=== PATIENT | female | born 1940 | race Caucasian/White ===

== ENCOUNTER 2016-11-12 16:26 | Inpatient (IN) | payer MEDICARE, OTHER ==
[~2016-11-12] VITALS: Ht 50.2 cm; Wt 80.3 kg
[~2016-11-12 16:26] MED LIST: ASPI-COR81 M1 PO; BUMEX2 MG PO; COREG3.125 MG PO; COUMADIN5 M2 PO; FOLIC ACID1 MG PO; MAG-OX 400400 MG PO; MASON NATURAL2000 IU PO; MIACALCIN SPRAY1 EA NAS; MOBIC7.5 MG PO; OXY IR5 MG PO; POTASSIUM20 MEQ PO; SYNTHROID0.1 MG PO
[2016-11-12 16:31] VITALS: BP 111/55
[2016-11-12 17:04] LABS: BASO % 0.4 % (0.0-1.0); EOS # 0.1 10*3/uL (0.0-0.4); EOS % 1.1 % (1.0-4.0); HEMOGLOBIN 11.9 g/dl (12.0-16.0); LYMPH # 1.1 10*3/uL (1.3-4.4); LYMPH % 14.3 % (27.0-41.0); MEAN CELL VOLUME 85.2 fl (81.0-99.0); MEAN CORPUSCULAR HGB CONC 30.5 g/dl (33.0-37.0); MONO # 0.7 10*3/uL (0.1-1.0); MONO % 9.4 % (3.0-9.0); NEUT # 5.6 10*3/uL (2.3-7.9); NEUT % 74.5 % (47.0-73.0); PLATELET COUNT AUTOMATED 163 10*3/uL (130-400); RED BLOOD COUNT 4.58 10*6/uL (4.10-5.10); RED CELL DISTRI WIDTH 18.5 % (0-14.5); WHITE BLOOD COUNT 7.6 10*3/uL (4.8-10.8)
[2016-11-12 17:12] LABS: INTERNATIONAL NORM RATIO 2.8 (2.0-3.5)
[2016-11-12 17:20] LABS: ALBUMIN 2.9 gm/dl (3.1-4.5); CREATININE 1.64 mg/dL (0.55-1.02); MAGNESIUM 1.9 mg/dL (1.5-2.1); POTASSIUM 3.6 mmol/L (3.5-5.1); TOTAL PROTEIN 7.5 gm/dL (6.4-8.2)
[2016-11-12 17:21] LABS: TROPONIN I 0.019 ng/ml (<0.045)
[2016-11-12 17:36] LABS: BILIRUBIN NEGATIVE (NEGATIVE); BLOOD NEGATIVE (NEGATIVE); CLARITY CLEAR (CLEAR); COLOR YELLOW (YELLOW); GLUCOSE NEGATIVE (NEGATIVE); KETONE NEGATIVE (NEGATIVE); LEUKO ESTERASE NEGATIVE (NEGATIVE); NITRITE NEGATIVE (NEGATIVE); SPECIFIC GRAVITY <= 1.005 (1.005-1.030); UROBILINOGEN 0.2 E.U./dl (0.2-1.0)
[2016-11-12 17:46] LABS: BACTERIA TRACE; EPITHELIAL CELLS 0-2; HYALINE CAST 21-30; RBC 0-2 rbc/hpf (0-2)
[2016-11-12 19:00] VITALS: BP 122/50
[2016-11-12 20:00] VITALS: BP 122/50
[2016-11-12] MEDS ORDERED: ZOLOFT50 MG PO (22:32)
[2016-11-12] MEDS ORDERED: CALCIUM + D SO1 EACH PO (22:34)
[2016-11-13] VITALS: BP 132/77
[2016-11-13 07:19] LABS: BASO % 0.3 % (0.0-1.0); EOS # 0.1 10*3/uL (0.0-0.4); EOS % 1.6 % (1.0-4.0); LYMPH # 1.4 10*3/uL (1.3-4.4); LYMPH % 16.1 % (27.0-41.0); MEAN CELL VOLUME 84.3 fl (81.0-99.0); MEAN CORPUSCULAR HGB 26.6 pg (27.0-31.0); MEAN CORPUSCULAR HGB CONC 31.6 g/dl (33.0-37.0); MEAN PLATELET VOLUME 11.7 fl (9.6-12.3); MONO # 0.7 10*3/uL (0.1-1.0); MONO % 7.8 % (3.0-9.0); NEUT # 6.4 10*3/uL (2.3-7.9); NEUT % 73.7 % (47.0-73.0); PLATELET COUNT AUTOMATED 181 10*3/uL (130-400); RED BLOOD COUNT 4.51 10*6/uL (4.10-5.10); RED CELL DISTRI WIDTH 18.5 % (0-14.5); WHITE BLOOD COUNT 8.7 10*3/uL (4.8-10.8)
[2016-11-13 07:45] LABS: CREATININE 1.44 mg/dL (0.55-1.02); MAGNESIUM 1.9 mg/dL (1.5-2.1); PHOSPHOROUS 3.3 mg/dL (2.5-4.9); POTASSIUM 3.3 mmol/L (3.5-5.1)
[2016-11-13 07:49] LABS: ACT PARTIAL THROMBO TIME 39.5 SECONDS (20.8-31.5)
[2016-11-13 07:52] LABS: THYROID STIM HORMONE (HS) 6.15 uIU/ml (0.358-4.75)
[2016-11-13 08:00] VITALS: BP 153/89
[2016-11-13 08:40] LABS: VITAMIN D, 25-HYDROXY 34.4 ng/mL (30-100)
[2016-11-13 12:00] VITALS: BP 108/76
[2016-11-13 16:00] VITALS: BP 129/67
[2016-11-13 20:00] VITALS: BP 125/61
[2016-11-14] VITALS: BP 126/90
[2016-11-14 04:00] VITALS: BP 110/62
[2016-11-14 07:26] LABS: CREATININE 1.21 mg/dL (0.55-1.02); FREE T4 1.11 ng/dl (0.76-1.46); PHOSPHOROUS 2.7 mg/dL (2.5-4.9); POTASSIUM 3.5 mmol/L (3.5-5.1)
[2016-11-14 08:02] VITALS: BP 141/91
[2016-11-14 12:00] VITALS: BP 115/74
[2016-11-14 16:00] VITALS: BP 114/49
[2016-11-14 20:00] VITALS: BP 114/74
[2016-11-15] VITALS: BP 110/56
[2016-11-15 06:24] LABS: INTERNATIONAL NORM RATIO 1.9 (2.0-3.5)
[2016-11-15 08:00] VITALS: BP 110/60
[2016-11-15 12:00] VITALS: BP 95/67
== END 2016-11-15 12:50 | disposition other institution (70) | DRG 291 ==
LOC: ED 16:26 → 4E 17:46 → EDHOLD 17:46 → 4E 18:17
PROVIDERS: Internal Medicine; Physician Assistant; Student in an Organized Health Care Education/Training Program; ADMIT Emergency Medicine
DX: I13.0 Hypertensive heart and chronic kidney disease with heart failure and stage 1 through stage 4 chronic kidney disease, or unspecified chronic kidney disease (principal); I50.33 Acute on chronic diastolic (congestive) heart failure; N17.0 Acute kidney failure with tubular necrosis; E44.0 Moderate protein-calorie malnutrition; I27.2 Other secondary pulmonary hypertension; R00.1 Bradycardia, unspecified; B35.1 Tinea unguium; I48.2 Chronic atrial fibrillation; E03.9 Hypothyroidism, unspecified; E87.6 Hypokalemia; I87.2 Venous insufficiency (chronic) (peripheral); G89.29 Other chronic pain; R31.9 Hematuria, unspecified; N18.3 Chronic kidney disease, stage 3 (moderate); H91.92 Unspecified hearing loss, left ear; D64.9 Anemia, unspecified; R41.0 Disorientation, unspecified; Z95.2 Presence of prosthetic heart valve; Z68.28 Body mass index [BMI] 28.0-28.9, adult; Z90.12 Acquired absence of left breast and nipple; Z85.3 Personal history of malignant neoplasm of breast; Z79.01 Long term (current) use of anticoagulants; Z79.82 Long term (current) use of aspirin; Z79.899 Other long term (current) drug therapy; Z82.49 Family history of ischemic heart disease and other diseases of the circulatory system; Z83.3 Family history of diabetes mellitus; Z80.0 Family history of malignant neoplasm of digestive organs

== ENCOUNTER 2016-12-17 11:50 | Inpatient (IN) | payer MEDICARE, OTHER ==
[~2016-12-17] VITALS: Ht 167.6 cm; Wt 100.2 kg
[2016-12-17] VITALS (7 sets, daily range): BP systolic 125–145; BP diastolic 71–93
--- NOTE | ~2016-12-17 | PR ---
[place], [place] PROGRESS NOTE NAME: PARVEEN RAINES UNIT #: [id number] ROOM: 410 DOCTOR: CITLALI VOSS MD BIRTHDATE: [birth year] DOS: 12/22/2016 SUBJECTIVE: The patient was seen at her bedside today with a family member in attendance. She seems somewhat more breathless. She denies any chest pain or palpitations. PHYSICAL EXAMINATION: VITAL SIGNS: Today, her pulse is 100 and irregularly irregular, blood pressure is 116/79. She has a temperature of 99.2. NECK: Supple. She has no jugular distention. She does have hepatojugular reflux. Carotids are full. LUNGS: Respirations have decreased breath sounds with crackles at the bases. She has no presacral edema. HEART: Has an irregularly irregular rhythm. The PMI is not displaced. She has no murmurs or gallops. ABDOMEN: Obese. EXTREMITIES: Showed trace edema bilaterally. IMPRESSION: 1. Acute on chronic diastolic congestive heart failure. 2. Atrial fibrillation. 3. Status post mitral valve replacement. 4. Chronic renal insufficiency, exacerbated by diuresis. PLAN: The patient's left ventricular systolic function is normal, but she remains in atrial fibrillation with an occasional rapid ventricular response, which contributes to her diastolic dysfunction. I will increase her metoprolol once again and had in a low dose of hydralazine and nitrates to act as unloading therapies. I am reluctant to increase her diuretics because of her worsening prerenal azotemia. Hopefully if we can get her heart rate down, she will begin to diurese more aggressively without an increase in her diuretics. I thank the hospitalist physicians for asking our advice regarding her care. [place], [place] PROGRESS NOTE NAME: PARVEEN RAINES UNIT #: [id number] ROOM: 410 DOCTOR: CITLALI VOSS MD BIRTHDATE: [birth year] CITLALI VOSS MD CM:PNTRANS [phone] CITLALI VOSS MD 12/23/16134 interface
--- NOTE | ~2016-12-17 | PR ---
[place], [place] PROGRESS NOTE NAME: PARVEEN RAINES [facility] #: [id number] UNIT #: [id number] ROOM: 410 DOCTOR: MARCELA MCCOLLUMJUWAN Nurys BIRTHDATE: [birth year] DOS: 12/28/2016 SUBJECTIVE: The patient was seen and examined. Her family was at bedside. She was in pain. She was having shortness of breath and was producing urine. Her renal function continues to decline. Family has indicated to me that surgery had seen the patient and there are plans to place a dialysis catheter on Friday. PHYSICAL EXAMINATION: VITAL SIGNS: Temperature 97, pulse 79, respiratory rate 21, blood pressure 101/74, pulse ox was noted to be 94% on 6 liters. HEENT: Shows positive JVD. Mucous membranes, otherwise, appear dry. She was wearing nasal cannula. LUNGS: Had bilateral crackles. HEART: Normal S1, S2. No rub, thrill or gallop. ABDOMEN: Soft and nontender. EXTREMITIES: Had 1-2+ edema. SKIN: Had numerous ecchymotic lesions noted. LABORATORY DATA: Reviewed. Hemoglobin 10.1, white count of 8.2, platelets of 117. Sodium 140, potassium 4.7, CO2 of 27, BUN 87, creatinine of 4.1, glucose 77, calcium 9.2 and albumin of 3.3. IMPRESSION: 1. Acute on chronic kidney disease. The patient has continued deterioration of her renal function. She may have acute tubular necrosis versus a low flow state or combination of several factors contributing. Her urine output remains marginal. She appears to be volume overloaded and likely has uremic symptoms. The dialysis catheter will be placed on Friday and dialysis will be begin on Friday and likely for a few days in a row. Diuretics will continue for now. Her electrolytes are acceptable. 2. Congestive heart failure/volume overloaded. Diuretics will continue and we will ultrafiltrate as tolerated with dialysis. Her blood pressures are somewhat soft and this may limit fluid removal. 3. Questionable pneumonia. The patient is on antibiotics. Dose medications for current creatinine clearance. 4. Anemia. The patient's H and H is stable. Transfuse as felt necessary. I had an extensive discussion with the patient's family at bedside. They do understand the need for dialysis and willing to proceed. All questions were answered. [place], [place] PROGRESS NOTE NAME: PARVEEN RAINES UNIT #: [id number] ROOM: 410 DOCTOR: MARCELA MCCOLLUM,JUWAN Nuno BIRTHDATE: [birth year] JUWAN MEDRANO MD CM:PNTRANS [phone] JUWAN MEDRANO MD 12/28/16 2156 interface
--- NOTE | ~2016-12-17 | CON ---
[place], [place] REPORT OF CONSULTATION [id number] UN[facility] #: [id number] ROOM: 410 DOCTOR: SUMANTH BURCH PRIYA BIRTHDATE: [birth year] DOS: 12/18/2016 HISTORY OF PRESENT ILLNESS: This is a 76-year-old female who is admitted for congestive heart failure. She is currently on a BiPAP machine and difficult to understand. She has chronic nonhealing posterior right lower extremity heel wound and relates the pain to the right foot. She denies nausea, vomiting, fever, chills at this time. PAST MEDICAL HISTORY: CHF, COPD, AFib, hypothyroidism, chronic pain, venous insufficiency, history of breast cancer, deafness in left ear, chronic kidney disease, obesity. PAST SURGICAL HISTORY: Aortic valve replacement, mastectomy. SOCIAL HISTORY: Denies alcohol use, tobacco use and illicit drug use. ALLERGIES: No known drug allergies. MEDICATIONS: Please see MAR for current list of medications. REVIEW OF SYSTEMS: GENERAL: Denies fevers, chills, weight loss. HEENT: Denies vision change, hearing loss, ear pain, blurred vision, throat pain or throat swelling. CARDIOVASCULAR: Reports lower extremity edema. RESPIRATORY: Relates to shortness of breath. Denies cough, hemoptysis, wheezing. ABDOMEN: Denies abdominal pain, nausea, vomiting, diarrhea. GENITOURINARY: Denies dysuria. NEUROLOGIC: Denies decreased sensation to bilateral lower extremities. PSYCHIATRIC: Denies depression and anxiety. ENDOCRINE: Denies polydipsia, heat intolerance or cold intolerance. SKIN: Relates to posterior calf wound, right lower extremity. PHYSICAL EXAMINATION: VITAL SIGNS: Temperature 98.5, pulse 96, respiratory rate 24, blood pressure 116/64. White count 6.7, hemoglobin 10.9, hematocrit 36.5, platelets 156. LOWER EXTREMITY PHYSICAL EXAMINATION: VASCULAR: DP and PT pulses are faintly palpable bilateral. There are extensive varicose veins noted in the bilateral lower extremities, no hair is present to bilateral lower extremities, there is erythema noted focally to the right foot. She relates the pain to the fourth and fifth interspace of the right foot. CFT is less than 5 seconds which is 1 through 5 bilateral. Skin is warm to cool to bilateral lower extremities. Sensation is intact to bilateral lower extremities. Decreased muscle tone and symmetry noted to bilateral extremities. [place], [place] REPORT OF CONSULTATION NAME: PARVEEN RAINES UNIT #: [id number] ROOM: 410 DOCTOR: SUMANTH BURCH PRIYA BIRTHDATE: [birth year] MUSCULOSKELTAL: 3/5 muscle strength noted bilateral lower extremities. Equinus deformity noted to bilateral lower extremities. DERMATOLOGIC: There is a stable black eschar that measures about 2 x 2 cm noted in the posterior aspect of the right lower extremity. Does not track. No malodor. No purulent drainage. No undermining noted. The black eschar is stable to wound base. There is also n additional maceration noted to the fourth and fifth digits of the right foot. ASSESSMENT AND PLAN: 1. Nonhealing ulceration noted to the posterior aspect of the right lower extremity. 2. ____ fourth interspace left foot. 3. Venous insufficiency. 4. Stasis dermatitis. PLAN: 1. The patient seen and examined. 2. Apply Bactroban to the posterior aspect of the right lower extremity. 3. Obtain ABIs of bilateral lower extremities. 4. Ordered venous duplex to bilateral lower extremities. 5. Ordered left foot x-ray and right tib-fib x-ray to rule out any infection. 6. We will continue to follow. TISH BURCH DPM CM:CONSTR:REPORT OF CONSULTATION 49 12/19/16 1544 interface
--- NOTE | ~2016-12-17 | PR ---
[place], [place] PROGRESS NOTE [id number] UN[facility] #: [id number] ROOM: [place] [address] DOCTOR: YESY NAVARRO MD BIRTHDATE: [birth year] DOS: 12/30/2016 11 XHISTORY: I was asked to see this 76-year-old female in the [facility] because of unresponsive state, not breathing and no pulse. She was admitted to the hospital with severe respiratory symptoms and what was described as hypoxia. She has had increasing respiratory distress, increasing fluid retention as an acute kidney injury. No one is here with her to give any additional information. On evaluation, she was deeply cyanotic though the nurse said that she had been cyanotic, unresponsive with no cardiac activity either by palpation or auscultation. Nurse had taken off the BiPAP mask when it was noted that she was not breathing and as I walked into the room to evaluate the patient, external cardiac massage was started and hand bag valve mask ventilation were started. There was no recordable blood pressure, no heart tones and no spontaneous respirations. The technology education instructor showed an occasional ventricular beats, but no sustained rhythm. Code status was confirmed by the nurse and we did proceed with cardiac resuscitation. External cardiac massage and hand ventilation continued. It should be noted she had extensive scarring on the chest from prior mastectomy. She has large frame with significant edema in the arms, abdomen, chest and extremities. There were no spontaneous movements and she did have persistent acrocyanosis, no pulses were palpable in the carotid region or in the femoral region. Continuous cardiac massage and ventilation. Direct laryngoscopy showed a soft tissue swelling medially below the hypopharynx difficult to visualize the cords with a curved blade difficult to intubate using the GlideScope and subsequently a straight blade was used. The cords were visualized without difficulty and tube was passed. There was mist in the tube and NCO2 was positive. Breath sounds were heard over both sides of the chest and no breath sounds were heard over the epigastrium. Size of the tube was 7. The tube was secured. Prior to intubation, there were some cardiac activity with the resuscitative efforts and subsequently after epinephrine, atropine, intravenous bicarbonate and dopamine, there were spontaneous respirations, return of cardiac activity. The bradycardia was refractory to atropine and so the external pacemaker was activated and good pulses were appreciated both in the carotid area and in the femoral area. There were some weak attempts breathing. After circulation was restored, a 12-lead EKG was obtained, which showed some ST elevation in the anteroseptal leads. There is also a right bundle branch block. The right bundle branch block was not new, but the ST elevation was new and was suspicious for myocardial injury. Because of the patient's inability to ventilate adequately, I recommended mechanical ventilation and the settings were FiO2 of 100, tidal volume 500 and assist control 12. Her blood pressure was too low for PEEP. A stat chest x-ray was obtained to evaluate both the lung parenchyma on the position of the tube. The ET tube was in satisfactory position. There is moderate cardiomegaly and bilateral alveolar infiltrates consistent with fluid overload. Blood for hematological and biochemical studies were obtained from the right femoral vein because no peripheral access was available. That procedure was performed by physician and I did try to get blood gases from the femoral artery, but the specimen was clearly a venous specimen. The patient's condition was critical and I did discuss the current status with the patient's family. Dr. Kaufman was contacted and he wanted to wait for the troponin level before he recommended any [place], [place] PROGRESS NOTE NAME: PARVEEN RAINES UNIT #: [id number] ROOM: [place] [address] DOCTOR: RAMON MCCOLLUM,YESY BIRTHDATE: [birth year] transfer. He did not want the EKG sent to him during the first conversation. Family were contacted and were advised of the critical nature of her condition and the son reported that she did have a living will and that if she was in a terminal state, then no further resuscitative action should be considered. Subsequent to that conversation with the family, I did obtain and document their wishes for DNR arrest, but subsequently the family opted for a DNRCC. It should be noted that the patient's blood sugar was 14 mg. She was given 50% dextrose intravenously. DIAGNOSIS: Post-cardiac arrest, acute kidney injury, fluid overload and history of carcinoma of the breast. CONDITION: Critical. PROGNOSIS: Poor. I did speak with the resident, Dr. Leonard and he has assumed care for this patient. I spoke with the family members on 2 separate occasions to update them on their mother's current status. YESY NAVARRO MD CM:PNKARINA [phone] YESY NAVARRO MD 12/30/16 1426 interface
--- NOTE | ~2016-12-17 | PR ---
[place], [place] PROGRESS NOTE NAME: PARVEEN RAINES [facility] #: [id number] UNIT #: [id number] ROOM: 410 DOCTOR: GENEVA BECERRIL DPM BIRTHDATE: [birth year] DOS: 12/23/2016 SUBJECTIVE: The patient is seen for followup of a wound on her right lower leg. The patient has no complaints at this time. OBJECTIVE: EXTREMITIES: Pedal pulses are decreased. There is decreased hair growth. Varicosities and pigment changes are noted. Skin temperature is cool. Skin is thin and shiny. There is just very minimal area of eschar noted on the right lower leg that is stable. No surrounding edema or erythema, no drainage or malodor, no signs of infection. Minimal open areas noted at the dorsal fourth toes. Overall, no signs of infection. Everything is stable. Arterial studies are noted. Venous Doppler is negative. ASSESSMENT: Ulceration, right lower leg, which is stable; venous insufficiency; stasis dermatitis; peripheral arterial disease. PLAN, EVALUATION AND MANAGEMENT: Would recommend just leaving the area open to air. I would not recommend any aggressive workup of her arterial flow at this time as her wounds are stable. X-rays were negative. Continue to monitor the areas. We will follow up with the patient while she is in the hospital. GENEVA BECERRIL DPM CM:PNTRANS [phone] GENEVA BECERRIL DPM 12/23/16 234 interface
--- NOTE | ~2016-12-17 | PR ---
[place], [place] PROGRESS NOTE NAME[id number] UNIT #: [id number] ROOM: 410 DOCTOR: CITLALI VOSS MD BIRTHDATE: [birth year] DOS: 12/21/2016 SUBJECTIVE: The patient was seen at her bedside today 12/21/2016 with 2 family members in attendance. She is lying on her right side and propped upwards. She states that she feels generally well and denies any dyspnea or chest discomfort. Her family members do note that she is more alert, less breathless and has less swelling of her legs. She is a 76-year-old woman with dementia who has chronic diastolic congestive heart failure with an acute exacerbation. She has had acute respiratory failure. She is in atrial fibrillation with a fairly rapid ventricular response. PHYSICAL EXAMINATION: VITAL SIGNS: Today, her pulse is 100-110 and irregularly irregular. Blood pressure is 107/58. She is afebrile. NECK: Supple. She has mild jugular distention with hepatojugular reflux present. Carotids are full. LUNGS: Respirations are unlabored. She does have bibasilar rales. She has no presacral edema. HEART: Has an irregularly irregular rhythm. Heart tones are distant, but I heard no murmurs or gallops. ABDOMEN: Obese, but otherwise benign. EXTREMITIES: Showed no edema on the left ankle and trace edema on the right, several ulcerations are bandaged on the right side. LABORATORY DATA: Hemoglobin is 10.7 with a white count of 8300 and platelet count of 150,000. INR is 3.1. Sodium is 139, potassium 3.3, BUN 44 and creatinine 1.45. IMPRESSION: 1. Acute on chronic diastolic congestive heart failure. 2. Chronic renal insufficiency with some degree of prerenal azotemia. 3. Atrial fibrillation with rapid ventricular response. 4. Respiratory failure. PLAN: We will be increasing her diuresis for a day or 2 and following her renal functions carefully. She may require more potassium supplementation, but since she is already on spironolactone, we will await the results of her basic metabolic profile in the morning before we add potassium to her regimen. We will also increase her metoprolol as tolerated by her blood pressure in order to try to better control her heart rate. Given her multiple medical problems, we will remain very conservative in her evaluation and management. Family members seem to be pleased with her progress thus far. [place], [place] PROGRESS NOTE NAME: PARVEEN RAINES UNIT #: [id number] ROOM: 410 DOCTOR: CITLALI VOSS MD BIRTHDATE: [birth year] CITLALI VOSS MD CM:PNTRANS [phone] CITLALI VOSS MD 12/22/16 1523 interface
--- NOTE | ~2016-12-17 | PR ---
[place], [place] PROGRESS NOTE [id number] #: [id number] ROOM: 410 DOCTOR: CITLALI VOSS MD BIRTHDATE: [birth year] DOS: 12/23/2016 CARDIOLOGY PROGRESS NOTE SUBJECTIVE: The patient was seen at her bedside today, 12/23/2016. No family was in attendance this morning. She was lying almost flat in bed and appeared to be breathing easily. She was asleep when I entered the room. OBJECTIVE: VITAL SIGNS: Pulses equals 79 and irregularly irregular, blood pressure is 93/53. She weighs 96.2 kilograms with a body mass index of 34.2. NECK: Supple. She has no jugular distention and minimal hepatojugular reflux. Carotids are full. LUNGS: Respirations are unlabored. She has decreased breath sounds at the bases. I did not hear rales or wheezes today. HEART: Has an irregularly irregular rhythm. The PMI is not displaced. I could not hear any murmurs or gallops. ABDOMEN: Obese, but otherwise benign. EXTREMITIES: Showed no ankle edema. LABORATORY DATA: Hemoglobin today is 10.7 with a white count of 8300 and platelet count 150,000. INR is 5.4. Sodium is 139, potassium 4.1, BUN 53, creatinine 1.97. IMPRESSION AND PLAN: The patient is developing worsening prerenal azotemia and does not show any signs of significant fluid overload at this time. Therefore, I will decrease her diuretics. For now I will not make any changes in her beta blockers, hydralazine or isosorbide since her blood pressure is marginal. We will need to watch her renal functions carefully and Nephrology assessment may be helpful if her BUN and creatinine do not improve spontaneously. I thank the hospitalist service for asking our advice regarding her care. [place], [place] PROGRESS NOTE NAME: JANNETTE RAINESIA Samuel UNIT #: [id number] ROOM: 410 DOCTOR: CITLALI VOSS MD BIRTHDATE: [birth year] CITLALI VOSS MD CM:PNTRANS [phone] CITLALI VOSS MD 12/23/16 2345 interface
[~2016-12-17 11:50] MED LIST changes: +CALCIUM + D SO1 EACH PO; +ZOLOFT50 MG PO
--- NOTE | 2016-12-17 12:25 | NUR ---
[facility] THAT PATIENT IS ON A 1800 FLUID RESTRICTION
[2016-12-17 12:36] LABS: BASO % 0.4 % (0.0-1.0); EOS # 0.1 10*3/uL (0.0-0.4); EOS % 1.3 % (1.0-4.0); HEMATOCRIT 37.8 % (37.0-47.0); HEMOGLOBIN 11.3 g/dl (12.0-16.0); LYMPH % 12.6 % (27.0-41.0); MEAN CELL VOLUME 87.1 fl (81.0-99.0); MEAN CORPUSCULAR HGB CONC 29.9 g/dl (33.0-37.0); MEAN PLATELET VOLUME 11.5 fl (9.6-12.3); MONO # 0.8 10*3/uL (0.1-1.0); MONO % 10.6 % (3.0-9.0); NEUT # 5.8 10*3/uL (2.3-7.9); NEUT % 74.8 % (47.0-73.0); PLATELET COUNT AUTOMATED 162 10*3/uL (130-400); RED BLOOD COUNT 4.34 10*6/uL (4.10-5.10); RED CELL DISTRI WIDTH 19.8 % (0-14.5); WHITE BLOOD COUNT 7.8 10*3/uL (4.8-10.8)
[2016-12-17 12:44] LABS: ACT PARTIAL THROMBO TIME 40.5 SECONDS (20.8-31.5); INTERNATIONAL NORM RATIO 3.3 (2.0-3.5)
[2016-12-17 12:51] LABS: ALBUMIN 2.8 gm/dl (3.1-4.5); CREATININE 1.25 mg/dL (0.55-1.02); MAGNESIUM 1.7 mg/dL (1.5-2.1); POTASSIUM 4.1 mmol/L (3.5-5.1); TOTAL PROTEIN 8.1 gm/dL (6.4-8.2); TROPONIN I 0.035 ng/ml (<0.045)
[2016-12-17] MEDS ORDERED: METOLAZONE5 MG PO (13:16)
[2016-12-17] MEDS ORDERED: DEMADEX20 M1 PO (13:16)
[2016-12-17] MEDS ORDERED: LAMISIL250 MG PO (13:17)
[2016-12-17] MEDS ORDERED: ASPIRIN81 M1 PO (13:17)
[2016-12-17] MEDS ORDERED: SYNTHROID,LEV112 MCG PO (13:17)
[2016-12-17] MEDS ORDERED: SERTRALINE HYDR25 MG PO (13:18)
[2016-12-17] MEDS ORDERED: MAGOX 400400 MG PO (13:18)
[2016-12-17] MEDS ORDERED: CALTRATE 600 P1 EACH PO (13:19)
[2016-12-17] MEDS ORDERED: NATURE'S BLEND F1 MG PO (13:19)
[2016-12-17] MEDS ORDERED: CARVEDILOL3.125 MG PO (13:19)
[2016-12-17] MEDS ORDERED: WARFARIN SODIUM4 MG PO (13:20)
--- NOTE | 2016-12-17 14:14 | NUR ---
NURSE TO NURSE REPORT PROVIDED TO FREDERIC AT [facility] AT THIS TIME.
--- NOTE | 2016-12-17 14:36 | NUR ---
1350 PLACED ON BIPAP PER ORDER, NO SETTINGS GIVEN. PLACED ON 02/28. RN AWARE. WILL INFORM DR. DECKER
--- NOTE | 2016-12-17 14:45 | NUR ---
A 76, admitted to , under the services of MARICEL Najera DO with a diagnosis of ACUTE HEART FAILURE. Chief complaint is 10 LB WEIGHT GAIN. Patient arrived via bed from ER. Monitor applied. Initial assessment completed. Vital signs taken and recorded. MARICEL NAJERA DO notified of admission to the unit. Orders received. See assessment for past medical history, medications and allergies. Patient and/or family oriented to unit. [facility] visitation policy reviewed. Clothing/patient valuable form completed. NIK VELASQUEZ
--- NOTE | 2016-12-17 16:47 | NUR ---
MED REC UP TO DATE PER PATIENT LIST FROM [facility]
--- NOTE | 2016-12-17 17:00 | NUR ---
Pt legs wrapped w/bernabe wraps. Pt refused to have them removed at this time.
--- NOTE | 2016-12-17 20:45 | NUR ---
RESTING IN BED. RESPIRATIONS EASY. LUNGS DIMINISHED WITH PB RALES. PULSE OX 95% 4L, HUMIDIFICATION APPLIED. INFREQUENT DRY COUGH NOTED. +2 BLE EDEMA NOTED - DANIELLE WRAPS REMOVED FROM [facility] AND WOUNDS X 2 NOTED TO RLE, CONSENT OBTAINED AND PICS TAKEN. CONNORS PATENT. CALL LIGHT WITHIN REACH. NO VOICED COMPLAINTS
--- NOTE | 2016-12-17 20:55 | NUR ---
MEDICATED WITH NORCO PER PRN ORDER FOR COMPLAINTS OF PAIN TO BILATERAL HANDS RATING A 6. CALL LIGHT WITHIN REACH. WILL MONITOR FOR EFFECTIVENESS
--- NOTE | 2016-12-17 21:00 | NUR ---
JHOANA GARNER CALLED IN. UPDATED ON PATIENT CONDITION. INFORMED OF WOUNDS AND CONSENT FOR PICS OBTAINED. ALSO INFORMED OF ROOM CHANGE TO 410.
--- NOTE | 2016-12-17 23:00 | NUR ---
MEDS APPEAR EFFECTIVE. SLEEPING. RESPIRATIONS EASY. O2 IN USE. CALL LIGHT WITHIN REACH. BED ALARM MAINTAINED FOR SAFETY
[2016-12-18] VITALS: BP 113/64
--- NOTE | 2016-12-18 00:30 | NUR ---
RESP PRESENT ON FLOOR, PATIENT PLACED ON BI-PAP PER ORDER. CONTINUES TO SLEEP WITH NO DISTRESS NOTED. RESPIRATIONS EASY. VSS. CALL LIGHT WITHIN REACH
[2016-12-18] MEDS ORDERED: POTASSIUM CHLO20 ME3 PO (03:51)
--- NOTE | 2016-12-18 06:00 | NUR ---
SLEPT THROUGHOUT NIGHT WITH NO DISTRESS NOTED. RESPIRATIONS EASY. BI-PAP IN USE. BED ALARM MAINTAINED FOR SAFETY
[2016-12-18 06:02] LABS: BASO # 0.1 10*3/uL (0.0-0.1); BASO % 0.7 % (0.0-1.0); EOS # 0.2 10*3/uL (0.0-0.4); EOS % 2.8 % (1.0-4.0); HEMATOCRIT 36.5 % (37.0-47.0); HEMOGLOBIN 10.9 g/dl (12.0-16.0); LYMPH # 1.2 10*3/uL (1.3-4.4); MEAN CORPUSCULAR HGB 26.3 pg (27.0-31.0); MEAN CORPUSCULAR HGB CONC 29.9 g/dl (33.0-37.0); MEAN PLATELET VOLUME 11.6 fl (9.6-12.3); MONO # 0.7 10*3/uL (0.1-1.0); MONO % 10.6 % (3.0-9.0); NEUT # 4.5 10*3/uL (2.3-7.9); NEUT % 67.6 % (47.0-73.0); PLATELET COUNT AUTOMATED 156 10*3/uL (130-400); RED BLOOD COUNT 4.15 10*6/uL (4.10-5.10); RED CELL DISTRI WIDTH 19.9 % (0-14.5); WHITE BLOOD COUNT 6.7 10*3/uL (4.8-10.8)
[2016-12-18 06:25] LABS: CREATININE 1.37 mg/dL (0.55-1.02); MAGNESIUM 1.6 mg/dL (1.5-2.1); PHOSPHOROUS 3.5 mg/dL (2.5-4.9); POTASSIUM 3.4 mmol/L (3.5-5.1)
[2016-12-18 06:43] LABS: ACT PARTIAL THROMBO TIME 41.4 SECONDS (20.8-31.5); INTERNATIONAL NORM RATIO 3.1 (2.0-3.5)
--- NOTE | 2016-12-18 07:54 | NUR ---
Respiratory notified that patient would like to come off bipap. NC applied.
--- NOTE | 2016-12-18 07:55 | NUR ---
Patient comes from [facility] and can return when medically stable for discharge.
[2016-12-18 08:00] VITALS: BP 118/82
--- NOTE | 2016-12-18 10:52 | NUR ---
Patient resting quietly with no c/o discomfort. Respirations easy and regular. Vital signs stable. No overt distress. NIK VELASQUEZ
[2016-12-18 12:00] VITALS: BP 104/60
--- NOTE | 2016-12-18 14:37 | NUR ---
PARVEEN RAINES [id number] Please refer to the physician's history and physical for past medical history, comorbid conditions, and allergies. Diagnosis: AC HEART FAILURE Bhupinder Score: 20,LOW OR NO RISK WOUND DESCRIPTIONS: Location of the wound: between 4th and 5th toe Type of wound: unstageable Thickness: Full Size: 1.0cm x 0.5cm x 0.1cm Tunneling: none Undermining: none Sinus Tract: none Presence of Exudate: Serous Amount: Light Color: Yellow Odor: None Periwound Skin Appearance: Normal Wound edges: approximated Pain (associated with wound): tender to touch How does patient state this happened? pt unable to state how this happened Location of the wound: right posterior leg Type of wound: stage 3 Thickness: Full Size: 1.5cm x 1.3cm x 0.1cm Tunneling: none Undermining: none Sinus Tract: none Presence of Exudate: Purulent Amount: Light Color: Brown, yellow, and red Odor: None Periwound Skin Appearance: Normal Wound edges: approximated Pain (associated with wound): none at time of assessment How does patient state this happened? pt unable to state how this happened Surface the patient is resting on: Isoflex SKIN PREVENTION RECOMMENDATION: 1. Pressure redistribution support surface as appropriate 2. Elevate heels 3. Remove boots/TEDS every shift and reapply 4. Head of bed 30 degrees as tolerated 5. Assess nutrition and hydration 6. Manage moisture 7. Avoid the use of containment devices while in bed 8. Use absorptive products on surfaces limit layers of linens on bed 9. Turn and reposition every 1-2 hours in bed and every 1 hour in chair as tolerated 10. Weight shifts every 15 minutes while up in chair 11. Offloading with pillows or device to keep heels elevated off bed 12. Monitor skin at least every shift 13. Inspect under medical devices twice a day WOUND TREATMENT RECOMMENDATIONS: Consult podiatry. Cleanse right posterior leg with nss and apply sureprep surrounding wound therahoney to wound bed cover with optifoam gentle. Heel raiser pro boots to BLE.
--- NOTE | 2016-12-18 15:19 | NUR ---
DR. CARLISLE NOTIFIED FOR CONSULT ON PT.
--- NOTE | 2016-12-18 15:52 | NUR ---
DR WITT NOTIFIED OF CONSULT. WILL SEE PATIENT IN A.M.
[2016-12-18 16:00] VITALS: BP 112/66
[2016-12-18 20:00] VITALS: BP 116/64
--- NOTE | 2016-12-18 20:30 | NUR ---
DR BURCH HERE TO SEE PATIENT. ASSESSMENT COMPLETE. NEW ORDERS RECEIVED
--- NOTE | 2016-12-18 21:10 | NUR ---
BI-PAP ALARMING. PATIENT YELLING OUT TO "TAKE THIS OFF!" BI-PAP REMOVED AT PATIENT REQUEST. O2 APPLIED AT 2.5L HUMDIFIED, PULSE OX 94%. RESPIRATIONS EASY. LUNGS DIMINISHED WITH PB RALES. BLE DISCOLORED WITH +1 EDEMA. WOUNDS NOTED. CONNORS PATENT AND INTACT. CALL LIGHT WITHIN REACH. BED ALARM MAINTAINED FOR SAFETY
--- NOTE | 2016-12-18 23:05 | NUR ---
AGAIN CALLING OUT. QUESTIONED REGARDING PAIN, PATIENT STATES YES BUT UNABLE TO LOCATE OR RATE. MEDICATED WITH RESTORIL AND TYLENOL PER PRN ORDER. CALL LIGHT WITHIN REACH. WILL MONITOR
[2016-12-19] VITALS: BP 124/82
--- NOTE | 2016-12-19 | NUR ---
RESTING MORE QUIELTY. RESPIRATIONS EASY. PULES OX 94% 3L. CALL LIGHT WITHIN REACH. BED ALARM MAINTAINED FOR SAFETY
--- NOTE | 2016-12-19 02:30 | NUR ---
SLEEPING. O2 IN USE VIA NC. BED ALARM MAINTAINED
--- NOTE | 2016-12-19 04:00 | NUR ---
RESP PRESENT ON FLOOR. PATIENT PLACED ON BI-PAP
--- NOTE | 2016-12-19 06:00 | NUR ---
CONTINUES TO SLEEP WITH BI-PAP IN PLACE. RESPIRATIONS EASY. CALL LIGHT WITHIN REACH. BED ALARM MAINTAINED FOR SAFETY
[2016-12-19 08:00] VITALS: BP 132/73
[2016-12-19 09:02] LABS: CREATININE 1.31 mg/dL (0.55-1.02); POTASSIUM 3.2 mmol/L (3.5-5.1)
--- NOTE | 2016-12-19 09:30 | NUR ---
SPEECH PATHOLOGY Bedside swallow eval. completed as per orders. Patient was alert with generalized weakness. She was cooperative for assessment. Patient was challenged with thin liquid and solid food to assess safe tolerance. With thin liquid patient needed multiple swallows per sip and displayed occasional throat clearing. With solid consistency, biting/chewing were slow but functional due to dentition. Patient has been afebrile and WBC is currently within normal range. Recommend she remain on present diet at current time with use of safe swallow strategies such as upright positioning for meals, small bites and sips and eating slowly. Recommend patient choose food items that are soft and moist so they are easier for her to chew and swallow. Patient was educated on results and ollie. and verbalized understanding. Follow up therapy is recommended to ensure safe tolerance of diet through education, skilled monitoring and use of strategies. Refer to report in [facility] for further information. Thank you for this referral. JOHNNY SIBLEY MSCCC-COLOR DEVELOPER
[2016-12-19 12:00] VITALS: BP 131/70
[2016-12-19 16:00] VITALS: BP 109/60
--- NOTE | 2016-12-19 18:34 | NUR ---
NORCO GIVEN FOR C/O BILATERAL LEG PAIN. WILL MONITOR.
[2016-12-19 20:00] VITALS: BP 118/80
[2016-12-20] VITALS: BP 112/74
--- NOTE | 2016-12-20 02:00 | NUR ---
PATIENT REPOSITIONED FOR COMFORT. NO S/S OF DISTRESS NOTED
[2016-12-20 04:26] LABS: INTERNATIONAL NORM RATIO 3.1 (2.0-3.5)
[2016-12-20 04:43] LABS: CREATININE 1.31 mg/dL (0.55-1.02); POTASSIUM 3.9 mmol/L (3.5-5.1)
[2016-12-20 08:00] VITALS: BP 138/84
--- NOTE | 2016-12-20 10:12 | NUR ---
Patient can return to [facility] when medically stable for discharge. Faxed updates to [facility] for review.
[2016-12-20 12:00] VITALS: BP 132/86
[2016-12-20 13:16] LABS: ABG BASE EXCESS 11.9 mmol/L (-2.0-2.0); ABG HCO3 36.5 mmol/l (22-26); ABG O2 SATURATION 97.8 % (95-97); ARTERIAL BLOOD GAS PCO2 46.2 mmHg (35-45); ARTERIAL BLOOD GAS PH 7.507 (7.35-7.45)
--- NOTE | 2016-12-20 14:46 | NUR ---
SPEECH PATHOLOGY Patient was seen for treatment this pm. Patient was alert and cooperative. Frequent congested cough was displayed as well as generalized weakness and SOB. Patient performed oral exercises to improve lingual strength and ROM. She performed exercises with model and cues. Sips of thin liquid were taken by cup. Harsh cough was observed post swallow. As she appears weaker today and is now displaying coughing episodes with thin liquid, it is recommended that patient receive nectar thick liquids to decrease aspiration risk. This was explained to patient with reasoning provided. She verbalized understanding and agreement with recommendation. Patient's nurse was also informed and verbalized understanding. Continue therapy plan. JOHNNY SIBLEY MSCCC-CHANGEOVER OPERATOR
--- NOTE | 2016-12-20 15:53 | NUR ---
PT AWAKE, PLEASANT. NO ACUTE DISTRESS. PITTING EDEMA/ANASARCA CONTINUES. SHE REMAINS ON 3L NASAL CANNULA. ASSISTED PA WITH POSITIONING PT. HOB REMAINS ELEVATED.
[2016-12-20 16:00] VITALS: BP 121/86
--- NOTE | 2016-12-20 17:35 | NUR ---
SPOKE WITH DR ZULUAGA ABOUT SPEECH THERAPY'S RECOMMENDATION OF NECTAR THICK LIQUIDS.
--- NOTE | 2016-12-20 18:02 | NUR ---
PT TOLERATED DINNER WELL. DAUGHTER WAS AT BEDSIDE.
--- NOTE | 2016-12-20 18:44 | NUR ---
PT STATES "FEELING A LITTLE BIT SHORT OF BREATH"... ENCOURAGED DEEP BREATHING AND COUGHING. RESPIRATORY DEPT NOTIFIED TO PLACE PT ON BIPAP MACHINE PREVIOUSLY ORDERED. PT DOES NOT APPEAR TO BE IN DISTRESS BUT CANNOT EXPECTORATE SPUTUM.
--- NOTE | 2016-12-20 18:51 | NUR ---
RESPIRATORY DEPT HERE. PULSE OX ON NC3 WAS 98% WITH RR 22/MIN PRIOR TO PLACING ON BIPAP.
--- NOTE | 2016-12-20 19:11 | NUR ---
PT ONLY WORE BIPAP 20 MINUTES. BEGGED TO HAVE IT TAKEN OFF. RESPIRATIONS WERE IN THE MID 20'S. LOOSE COUGH. WILL TRY AGAIN LATER.
[2016-12-20 20:00] VITALS: BP 104/63
[2016-12-21] VITALS: BP 121/89
[2016-12-21 05:50] LABS: CREATININE 1.45 mg/dL (0.55-1.02); POTASSIUM 3.3 mmol/L (3.5-5.1)
[2016-12-21 06:08] LABS: BASO % 0.4 % (0.0-1.0); EOS # 0.2 10*3/uL (0.0-0.4); EOS % 2.1 % (1.0-4.0); HEMATOCRIT 35.8 % (37.0-47.0); HEMOGLOBIN 10.7 g/dl (12.0-16.0); LYMPH # 1.2 10*3/uL (1.3-4.4); LYMPH % 14.1 % (27.0-41.0); MEAN CELL VOLUME 86.1 fl (81.0-99.0); MEAN CORPUSCULAR HGB 25.7 pg (27.0-31.0); MEAN CORPUSCULAR HGB CONC 29.9 g/dl (33.0-37.0); MEAN PLATELET VOLUME 11.8 fl (9.6-12.3); MONO # 0.8 10*3/uL (0.1-1.0); MONO % 9.2 % (3.0-9.0); NEUT # 6.1 10*3/uL (2.3-7.9); NEUT % 73.7 % (47.0-73.0); PLATELET COUNT AUTOMATED 150 10*3/uL (130-400); RED BLOOD COUNT 4.16 10*6/uL (4.10-5.10); RED CELL DISTRI WIDTH 19.9 % (0-14.5); WHITE BLOOD COUNT 8.3 10*3/uL (4.8-10.8)
[2016-12-21 08:00] VITALS: BP 121/71
--- NOTE | 2016-12-21 10:13 | NUR ---
MEDICATED FOR C/O BACK PAIN OF 6 ON THE PAIN SCALE.
--- NOTE | 2016-12-21 11:46 | NUR ---
DISHARGED HOME AFTER INSTRUCTIONS EXPLAINED TO SON.
[2016-12-21 12:00] VITALS: BP 120/72
--- NOTE | 2016-12-21 12:00 | NUR ---
STATES THAT EARLIER PAIN MEDICATION FOR HER BACK WAS EFFECTIVE.
[2016-12-21 16:00] VITALS: BP 107/58
--- NOTE | 2016-12-21 17:20 | NUR ---
MEDICATED FOR 8 ON THE PAIN SCALE FOR RIGHT SHOULDER PAIN.
--- NOTE | 2016-12-21 18:28 | NUR ---
STATES THAT EARLIER PAIN MEDICATION WAS EFFECTIVE.
[2016-12-21 20:00] VITALS: BP 122/82
[2016-12-22] VITALS: BP 145/68
[2016-12-22 06:15] LABS: ALBUMIN 2.6 gm/dl (3.1-4.5); CREATININE 1.63 mg/dL (0.55-1.02); TOTAL PROTEIN 7.5 gm/dL (6.4-8.2)
[2016-12-22 08:00] VITALS: BP 119/80
[2016-12-22 12:00] VITALS: BP 116/79
--- NOTE | 2016-12-22 14:31 | NUR ---
MEDICATED WITH PO PAIN MEDICATION FOR C/O LEFT LEG OF 6 ON THE PAIN SCALE.
--- NOTE | 2016-12-22 14:51 | NUR ---
STATES THAT EARLIER AMBIKA PILL HAS HELPED HER SOME.
[2016-12-22 16:00] VITALS: BP 113/64
--- NOTE | 2016-12-22 17:00 | NUR ---
PT C/O MILD PAIN. TYLENOL 650 MG TABLET ADMINISTERED PO. WILL MONITOR FOR EFFECTIVENESS. CALL LIGHT IN REACH.
--- NOTE | 2016-12-22 18:00 | NUR ---
TYLENOL EFFECTIVE. CALL LIGHT IN REACH.
--- NOTE | 2016-12-22 18:26 | NUR ---
PT C/O PAIN. NORCO 5/325 MG TABLET ADMINISTERED PO. WILL MONITOR FOR EFFECTIVENESS. CALL LIGHT IN REACH.
--- NOTE | 2016-12-22 19:26 | NUR ---
NORCO 5/325 MG TABLET EFFECTIVE. NO FURTHER C/O PAIN. CALL LIGHT IN REACH.
[2016-12-22 20:00] VITALS: BP 102/59; BP 1025/59
--- NOTE | 2016-12-22 22:18 | NUR ---
PT MEDICATED WITH PRN RESTORIL PER REQUEST TO PROMOTE SLEEP.
--- NOTE | 2016-12-22 23:00 | NUR ---
PRN RESTORIL INEFFECTIVE FOR SLEEP. PT REMAINS AWAKE. REPOSITIONED FOR COMFORT.
[2016-12-23] VITALS: BP 113/71
--- NOTE | 2016-12-23 03:30 | NUR ---
PRN MORPHINE EFFECTIVE FOR PAIN RELIEF IN LLE/BACK. RESTING QUIETLY IN BED.
[2016-12-23 06:01] LABS: ALBUMIN 2.5 gm/dl (3.1-4.5); CREATININE 1.97 mg/dL (0.55-1.02); POTASSIUM 4.1 mmol/L (3.5-5.1); TOTAL PROTEIN 7.8 gm/dL (6.4-8.2)
[2016-12-23 06:19] LABS: INTERNATIONAL NORM RATIO 5.4 (2.0-3.5)
--- NOTE | 2016-12-23 06:24 | NUR ---
CRITICAL PT/INR REPORTED TO DR. VELAZQUEZ. NO N.O. RCVD AT THIS TIME.
[2016-12-23 08:00] VITALS: BP 93/53
--- NOTE | 2016-12-23 09:39 | NUR ---
PHYSICAL THERAPY PAtient evaluatd on 4, full evaluation to follow. Continue with PT as per plan of care with fall, max(A) x 1-2, alarms, 02 and significant acute debility precautions. Will require LTAC versus SNF for impaired mobility in order to return to PLOF. PAtient is high complexity via chart review, tests and evaluation: 33046. thank you for this referral. Roslyn Macedo,PT
--- NOTE | 2016-12-23 10:28 | NUR ---
SPEECH PATHOLOGY Patient was seen for treatment this am. Generalized weakness was displayed. Patient was seated upright in bed for meal. She was fed by clinician for breakfast. Patient kept her eyes closed throughout treatment. With soft solid, patient displayed occasional oral residue which she cleared independently. [place] thick liquids were given by spoon for safety. She displayed no cough or wet vocal quality with liquids but was noted to require multiple swallow following each sip and each bite of food. Patient remains weak and at risk for aspiration. Recommend she remain on present diet with continuation of nectar liquids and safe swallow strategies including upright for meals, small bites/sips and feeding slowly to allow her time to swallow extra times if needed. Continued therapy is recommended. JOHNNY SIBLEY MSCCC-SEGMENTAL PAVER INSTALLER
[2016-12-23 12:00] VITALS: BP 114/71
[2016-12-23 16:00] VITALS: BP 98/50
--- NOTE | 2016-12-23 19:00 | NUR ---
SPOKE WITH SON IN [place]. I TALKED WITH HIM REGARDING CODE STATUS. HE STATES THAT HE HAS POA AND THAT HE WILL CHECK ON PAPERWORK WHEN HE GETS HOME AND CALL BACK TO NURSE.
[2016-12-23 20:00] VITALS: BP 111/73
--- NOTE | 2016-12-23 22:43 | NUR ---
DR. DAVIS NOTIFIED OF POSITIVE SEPSIS SCREEN. TO ORDER BLOOD CULTURES.
[2016-12-24] VITALS: BP 149/99
--- NOTE | 2016-12-24 | NUR ---
PT REMAINS AWAKE. REMOVES BIPAP FREQUENTLY. PT REPOSITIONED. FLUIDS OFFERED AND ACCEPTED. C/O SOB. PT TEACHING GIVEN ON BIPAP USE. FACE CYANOTIC. SAT 92%. TACH[place]NEA NOTED. RESTORIL INEFFECTIVE. ENCOURAGED PT TO SLEEP TO PROMOTE HEALTH/HEALING. TV AND LIGHTS TURNED OFF. PT AGREEABLE.
--- NOTE | 2016-12-24 04:49 | NUR ---
PT RESTING QUIETLY IN BED WITH BIPAP ON AT THIS TIME.
[2016-12-24 06:25] LABS: ALBUMIN 2.5 gm/dl (3.1-4.5); CREATININE 2.47 mg/dL (0.55-1.02); POTASSIUM 4.8 mmol/L (3.5-5.1); TOTAL PROTEIN 7.6 gm/dL (6.4-8.2)
[2016-12-24 06:38] LABS: BASO # 0.1 10*3/uL (0.0-0.1); BASO % 0.8 % (0.0-1.0); EOS # 0.2 10*3/uL (0.0-0.4); EOS % 1.9 % (1.0-4.0); HEMATOCRIT 36.9 % (37.0-47.0); LYMPH # 1.1 10*3/uL (1.3-4.4); LYMPH % 14.5 % (27.0-41.0); MEAN CELL VOLUME 87.9 fl (81.0-99.0); MEAN CORPUSCULAR HGB 26.2 pg (27.0-31.0); MEAN CORPUSCULAR HGB CONC 29.8 g/dl (33.0-37.0); MEAN PLATELET VOLUME 12.1 fl (9.6-12.3); MONO # 0.8 10*3/uL (0.1-1.0); MONO % 10.2 % (3.0-9.0); NEUT # 5.6 10*3/uL (2.3-7.9); NEUT % 72.1 % (47.0-73.0); PLATELET COUNT AUTOMATED 183 10*3/uL (130-400); RED CELL DISTRI WIDTH 20.5 % (0-14.5); WHITE BLOOD COUNT 7.7 10*3/uL (4.8-10.8)
--- NOTE | 2016-12-24 06:40 | NUR ---
24 HR chart check completed.
[2016-12-24 06:59] LABS: INTERNATIONAL NORM RATIO 5.1 (2.0-3.5)
[2016-12-24 08:00] VITALS: BP 104/69
--- NOTE | 2016-12-24 09:56 | NUR ---
SPEECH PATHOLOGY Treatment was attempted this am. Patient was laying in bed and her breakfast tray was in front of her, untouched. Clinician asked if she wanted to sit up and eat. Patient responded that she did not want to eat as she was not feeling well. Patient c/o her head and stomach hurting. Due to this treatment was not conducted. Patient's nurse was informed of pain and verbalized understanding. Will attempt again at a later time. JOHNNY SIBLEY MSCCC-AIR TRAFFIC CONTROL MANAGER
--- NOTE | 2016-12-24 11:12 | NUR ---
DR. SAMAYOA'S OFFICE NOTIFIED OF CONSULT.
--- NOTE | 2016-12-24 11:47 | NUR ---
SPEECH PATHOLOGY Patient was seen for treatment. She was sitting upright in bed finishing breakfast when clinician arrived. Patient reported that she was feeling better than she was this morning. Congested cough was displayed. Patient was implementing safe swallow strategies such as slow consumption, small bites and sips and clearing oral cavity between bites. Patient has been afebrile and WBC is currently within normal range. Recommend she remain on nectar thick liquids at this time for safety. This recommendation and reasoning for it was shared with patient and she verbalized understanding and agreement, stating that she is aware that she has been coughing with thin liquids. Continue therapy plan. JOHNNY SIBLEY MSCCC-MANAGER SUSTAINABILITY
--- NOTE | 2016-12-24 11:47 | NUR ---
PHYSICAL THERAPY Mrs Vega seen this AM 1:1 for her therapy session, Pt supine in bed. Transfer supine/sit MAX A X 1, up into sitting, sitting balance MOD A X 1, and sit to tolerance wanting to lay back down. End with rom to bilateral LE and very tight in all planes. ANNA LEBRON PRECINCT POLICE CAPTAIN.
[2016-12-24 12:00] VITALS: BP 112/80
--- NOTE | 2016-12-24 13:45 | NUR ---
Patient comes from [facility] and can return when medically stable for discharge.
[2016-12-24 16:00] VITALS: BP 99/66
--- NOTE | 2016-12-24 17:44 | NUR ---
PULLING BI-PAP OFF. LIPS DUSKY. NAILBEDS CYANOTIC. PULSE OX 94% ON BI-PAP. SISTER HERE IN ROOM TO VISIT.
[2016-12-24 18:20] LABS: BILIRUBIN NEGATIVE (NEGATIVE); BLOOD 2+ (NEGATIVE); CLARITY SL CLOUDY (CLEAR); COLOR YELLOW (YELLOW); GLUCOSE NEGATIVE (NEGATIVE); KETONE NEGATIVE (NEGATIVE); LEUKO ESTERASE TRACE (NEGATIVE); NITRITE NEGATIVE (NEGATIVE)
[2016-12-24 18:29] LABS: BACTERIA 2+; EPITHELIAL CELLS 0-2; WBC 16-20 wbc/hpf (0-5)
[2016-12-24 20:00] VITALS: BP 115/80
--- NOTE | 2016-12-24 20:20 | NUR ---
PATIENT TAKEN OFF THE BIPAP AT THIS TIME TO EAT DINNER. 3L NC APPLIED.
--- NOTE | 2016-12-24 21:27 | NUR ---
PRN TYLENOL GIVEN FOR PATIENT COMPLAINTS OF LEFT KNEE PAIN. CALL LIGHT WITHIN REACH, WILL MONITOR
[2016-12-25] VITALS: BP 108/82
--- NOTE | 2016-12-25 01:45 | NUR ---
PATIENT KEEPS TRYING TO TAKE HER BIPAP OFF. ADVISED HER MULTIPLE TIMES THAT SHE NEEDS TO KEEP IT ON. SHE AGREES FOR A LITTLE WHILE THEN STARTS TO TAKE IT OFF AGAIN. SHE IS TO BE ON THE BIPAP AT NIGHT AND 3L NC DURING THE DAY.
[2016-12-25 06:06] LABS: BASO % 0.5 % (0.0-1.0); EOS # 0.2 10*3/uL (0.0-0.4); EOS % 2.2 % (1.0-4.0); HEMATOCRIT 35.9 % (37.0-47.0); HEMOGLOBIN 10.9 g/dl (12.0-16.0); LYMPH % 11.9 % (27.0-41.0); MEAN CORPUSCULAR HGB 25.6 pg (27.0-31.0); MEAN CORPUSCULAR HGB CONC 30.4 g/dl (33.0-37.0); MEAN PLATELET VOLUME 12.1 fl (9.6-12.3); MONO # 0.8 10*3/uL (0.1-1.0); MONO % 9.5 % (3.0-9.0); NEUT # 6.1 10*3/uL (2.3-7.9); NEUT % 75.4 % (47.0-73.0); PLATELET COUNT AUTOMATED 180 10*3/uL (130-400); RED BLOOD COUNT 4.25 10*6/uL (4.10-5.10); RED CELL DISTRI WIDTH 20.2 % (0-14.5); WHITE BLOOD COUNT 8.1 10*3/uL (4.8-10.8)
[2016-12-25 06:18] LABS: MEAN CELL VOLUME 84.5 fl (81.0-99.0)
[2016-12-25 06:23] LABS: ALBUMIN 2.6 gm/dl (3.1-4.5); CREATININE 2.75 mg/dL (0.55-1.02); POTASSIUM 4.7 mmol/L (3.5-5.1); TOTAL PROTEIN 7.5 gm/dL (6.4-8.2)
[2016-12-25 06:37] LABS: INTERNATIONAL NORM RATIO 3.6 (2.0-3.5)
[2016-12-25 08:00] VITALS: BP 101/64
--- NOTE | 2016-12-25 09:41 | NUR ---
Faxed clincal updates to [facility] for review per their request.
--- NOTE | 2016-12-25 10:15 | NUR ---
SPEECH PATHOLOGY Patient was seen for treatment this am. Patient was weak and reported feeling tired. She performed oral and pharyngeal exercises with max cues and model. Patient showed did well with lingual exercises as evidenced by improved ROM. Patient needed frequent redirection when performing pharyngeal exercises due to disctractability. She was educated on recommendation for continued need for nectar thick liquids for safety. She verbalized understanding. Continue plan. JOHNNY SIBLEY MS CCC-PASSENGER SERVICE AGENT
--- NOTE | 2016-12-25 10:19 | NUR ---
PHYSICAL THERAPY Pt seen this AM X 2, sleeping sound, then having her breakfast will stop back later. ANNA LEBRON CLIENT ANALYST.
[2016-12-25 12:00] VITALS: BP 100/60
--- NOTE | 2016-12-25 12:39 | NUR ---
PHYSICAL THERAPY Back this PM to see Mary and pt on her Bi-Pap. ANNA LEBRON MOLDING ROOM SUPERVISOR.
--- NOTE | 2016-12-25 13:25 | NUR ---
Occupational Therapy planned to see patient for OT evaluation this pm. Nursing reports that patient's kidney function is poor and physicians are considering dialysis and patient is on Bipap now in the day d/t her "bluish"coloring. Patient not appropriate for out of bed activities/OT eval.OT to attempt at a later date. Thank you for this referral. Felicitas Jamison OTR/l
--- NOTE | 2016-12-25 15:30 | NUR ---
ASSUMED CARE OF PATIENT. SHE IS RESTING IN BED WITH BIPAP ON. FAMILY AT BEDSIDE. PATIENT IS RESTING COMFORTABLY. DENIES ANY PAIN OR DISCOMFORT. NO DISTRESS NOTED. LUNGS DIMINISHED WITH WHEEZES AND RHONCHI. DENIES ANY CHEST PAIN. NO EDEMA. NORMOACTIVE BOWEL SOUNDS. THERE IS A SMALL WOUND THAT IS SCABBED TO HER RIGHT KNEE. HER HEELS ARE MUSHY. WILL PUT SOME HEEL PROTECTORS ON. NO OTHER COMPLAINTS. WILL CONTINUE TO MONITOR.
[2016-12-25 16:00] VITALS: BP 88/56
[2016-12-25 20:00] VITALS: BP 106/87
[2016-12-26] VITALS: BP 102/70
--- NOTE | 2016-12-26 00:46 | NUR ---
24 HR chart check completed.
[2016-12-26 07:12] LABS: BASO # 0.1 10*3/uL (0.0-0.1); BASO % 0.6 % (0.0-1.0); EOS # 0.1 10*3/uL (0.0-0.4); EOS % 1.7 % (1.0-4.0); HEMATOCRIT 36.2 % (37.0-47.0); HEMOGLOBIN 10.9 g/dl (12.0-16.0); LYMPH # 1.2 10*3/uL (1.3-4.4); MEAN CELL VOLUME 84.6 fl (81.0-99.0); MEAN CORPUSCULAR HGB 25.5 pg (27.0-31.0); MEAN CORPUSCULAR HGB CONC 30.1 g/dl (33.0-37.0); MEAN PLATELET VOLUME 12.9 fl (9.6-12.3); MONO # 0.8 10*3/uL (0.1-1.0); MONO % 9.5 % (3.0-9.0); NEUT # 6.2 10*3/uL (2.3-7.9); NEUT % 73.7 % (47.0-73.0); NUCLEATED RED BLOOD CELL 0.2 % (0.0-0.0); PLATELET COUNT AUTOMATED 173 10*3/uL (130-400); RED BLOOD COUNT 4.28 10*6/uL (4.10-5.10); RED CELL DISTRI WIDTH 20.2 % (0-14.5); WHITE BLOOD COUNT 8.4 10*3/uL (4.8-10.8)
[2016-12-26 07:25] LABS: CREATININE 3.18 mg/dL (0.55-1.02); MAGNESIUM 2.2 mg/dL (1.5-2.1); PHOSPHOROUS 4.2 mg/dL (2.5-4.9); POTASSIUM 4.9 mmol/L (3.5-5.1)
[2016-12-26 07:30] LABS: TOTAL PROTEIN 7.9 gm/dL (6.4-8.2)
[2016-12-26 07:44] LABS: INTERNATIONAL NORM RATIO 3.2 (2.0-3.5)
[2016-12-26 08:00] VITALS: BP 103/62
--- NOTE | 2016-12-26 08:28 | NUR ---
SPEECH PATHOLOGY Patient was unavailable for treatment this am. She was asleep and on Bi-Pap. Will attempt treatment again later. JOHNNY SIBLEY MSCCC-MANAGER STORE
--- NOTE | 2016-12-26 09:07 | NUR ---
Faxed clincal updates to [facility] per request for review.
--- NOTE | 2016-12-26 11:13 | NUR ---
MEDICATED WITH PRN TYLENOL PER ORDER AND FAMILY REQUEST PATIENT COMPLAINING OF LEG PAIN.
--- NOTE | 2016-12-26 11:18 | NUR ---
SPEECH PATHOLOGY Patient was seen for treatment this am. Patient was alert and visiting with her son. Education was provided to him on plan for dysphagia therapy and recommended diet. He verbalized understanding. Patient's tray arrived and following set up, she was fed by her son. He displayed appropriate use of safe swallow strategies such as small bites/sips, alternating food/liquid and feeding slowly. He provided encouragement to help increase her consumption. Patient showed no overt difficulty with any food or liquid item. Patient remains weak overall and would benefit from continued therapy to reduce aspiration risk. JOHNNY SIBLEY MSCCC-DOZER OPERATOR
[2016-12-26 11:35] LABS: ABG HCO3 24.3 mmol/l (22-26); ABG O2 SATURATION 95.7 % (95-97); ARTERIAL BLOOD GAS PCO2 34.4 mmHg (35-45); ARTERIAL BLOOD GAS PH 7.459 (7.35-7.45); ARTERIAL BLOOD GAS PO2 75.2 mmHg (80-90)
[2016-12-26 12:00] VITALS: BP 103/56
[2016-12-26 12:48] LABS: BILIRUBIN 1+ (NEGATIVE); BLOOD TRACE-INTACT (NEGATIVE); CLARITY SL CLOUDY (CLEAR); COLOR YELLOW (YELLOW); GLUCOSE NEGATIVE (NEGATIVE); KETONE TRACE (NEGATIVE); LEUKO ESTERASE 1+ (NEGATIVE); NITRITE NEGATIVE (NEGATIVE)
[2016-12-26 13:12] LABS: HYALINE CAST TNTC; MUCOUS TRACE
--- NOTE | 2016-12-26 13:50 | NUR ---
PHYSICAL THERAPY Patient presented to therapy in supine with spO2. Patient says she does not feel good today , but she agrees to therapy. Patient performed supine to side rolling to sitting at EOB transfers with MAX. A X 2. Patient sat at EOB with Mod. A X 1. Patient sat for 2 to 3 minutes and then had to lie back down due to SOB. Patient required MAX. A X 2 to transfer back to bed. Patient's nurse was advised about patient being very SOB and having a bluish coloration to her lips. Respirtory therapy went in to see the patient shortly thereafter. Reynaldo Rider SENIOR IT SPECIALIST
--- NOTE | 2016-12-26 14:43 | NUR ---
PATIENT TAKEN TO CT PER ORDER.
--- NOTE | 2016-12-26 15:32 | NUR ---
Occupational Therapy evaluation completed on 4 with full eval to follow. Precautions include skin prec, bipap, O2 @ 3LPM, l ear deafness, dysphagia; soft diet,nectar thick liquids, poor endurance, debilitation, high complexity [id number], Recommend OT per POC and LTACH v.s. SNF to enable improved medical status for improved mobility and ADLS. Thank you for this referral. Felicitas Jamison OTR/L
--- NOTE | 2016-12-26 15:45 | NUR ---
Took pts dentures out and placed in a cup with water. Readjusted BiPap and checked alarms.
[2016-12-26 16:00] VITALS: BP 127/86
[2016-12-26 20:00] VITALS: BP 106/53; BP 96/77
--- NOTE | 2016-12-26 20:19 | NUR ---
NUMEROUS SUPPORTIVE FAMILY AT BEDSIDE. PT TOLERATING BIPAP WELL.
--- NOTE | 2016-12-26 21:00 | NUR ---
SANIYA CARE DONE FOR INCONTINENCE OF BROWN STOOL. UNDERPADS CHANGED. PT REPOSITIONED. BIPAP OFF FOR MEDS AND THICK IT WATER. PT REQUESTS BIPAP TO BE REPLACED. HOB ELEVATED.
[2016-12-27] VITALS: BP 115/82
--- NOTE | 2016-12-27 01:12 | NUR ---
SPOKE WITH DR. AREVALO REGARDING PTS. ORDER FOR ALBUMIN, PER DR. AREVALO THE ALBUMIN IS TO BE HELD TONIGHT UNTIL ANOTHER LAB DRAW DETERMINES THE NEED FOR IT TOMORROW.
[2016-12-27 05:49] LABS: BASO # 0.1 10*3/uL (0.0-0.1); BASO % 0.6 % (0.0-1.0); EOS # 0.2 10*3/uL (0.0-0.4); EOS % 2.2 % (1.0-4.0); HEMATOCRIT 35.2 % (37.0-47.0); HEMOGLOBIN 10.9 g/dl (12.0-16.0); LYMPH # 1.1 10*3/uL (1.3-4.4); LYMPH % 13.4 % (27.0-41.0); MEAN CELL VOLUME 83.6 fl (81.0-99.0); MEAN CORPUSCULAR HGB 25.9 pg (27.0-31.0); MEAN PLATELET VOLUME 11.9 fl (9.6-12.3); MONO # 0.7 10*3/uL (0.1-1.0); MONO % 8.6 % (3.0-9.0); NEUT # 6.2 10*3/uL (2.3-7.9); NEUT % 74.8 % (47.0-73.0); NUCLEATED RED BLOOD CELL 0.4 % (0.0-0.0); PLATELET COUNT AUTOMATED 141 10*3/uL (130-400); RED BLOOD COUNT 4.21 10*6/uL (4.10-5.10); RED CELL DISTRI WIDTH 20.1 % (0-14.5); WHITE BLOOD COUNT 8.3 10*3/uL (4.8-10.8)
[2016-12-27 06:11] LABS: ALBUMIN 3.1 gm/dl (3.1-4.5); CREATININE 3.65 mg/dL (0.55-1.02); TOTAL PROTEIN 7.4 gm/dL (6.4-8.2)
[2016-12-27 06:16] LABS: INTERNATIONAL NORM RATIO 3.1 (2.0-3.5)
[2016-12-27 08:00] VITALS: BP 100/80
--- NOTE | 2016-12-27 08:27 | NUR ---
SPEECH PATHOLOGY Treatment was attempted this am. When clinician arrived, several doctors and patient's nurse were present. Her nurse reported that patient was experiencing breathing difficulty this morning and needed placed back on bi-pap. Due to this, treatment was withheld. Continue treatment at a later time. JOHNNY SIBLEY MSCCC-DRYING ROOM ATTENDANT
--- NOTE | 2016-12-27 09:00 | NUR ---
Two sons here visiting, assisted with eating, gave encouragement to eat. Continued nector thicket. Patient smiling, talking with family. alert and oriented x3. Misty GUILLAUME
--- NOTE | 2016-12-27 09:19 | NUR ---
PHYSICAL THERAPY Pt seen this AM supine in bed with Bi-Pap on sleeping. ANNA LEBRON BROADCAST OPERATIONS MANAGER.
--- NOTE | 2016-12-27 11:34 | NUR ---
PATIENT IN BED WITH BIBAP ON AND REPORTS FATIGUE. WILL TRY BACK LATER DATE. LYNDON BOWIE/Samuel
[2016-12-27 12:00] VITALS: BP 98/70
--- NOTE | 2016-12-27 12:05 | NUR ---
PT RESTING COMFORTABLY WITH THE BIPAP ON. NO DISTRESS. NO OVERT SIGNS OF PAIN. WILL CONTINUE TO MONITOR.
--- NOTE | 2016-12-27 12:41 | NUR ---
PHYSICAL THERAPY Back to see Mrs Vega, family was in. Mary not doing well at all and not wanting up for her therapy, just rest with Bi-pap on. ANNA LEBRON WINDMILL MECHANIC.
--- NOTE | 2016-12-27 14:09 | NUR ---
[facility] stable for discharge.
[2016-12-27 16:00] VITALS: BP 84/60
[2016-12-27 20:00] VITALS: BP 102/79
[2016-12-28] VITALS: BP 110/50
--- NOTE | 2016-12-28 02:56 | NUR ---
PT. DISPLAYING ANXIOUS FEELINGS, PROVIDED ATIVAN FOR COMFORT. WILL EVALUATE EFFECTIVENESS.
[2016-12-28 05:48] LABS: ALBUMIN 3.3 gm/dl (3.1-4.5); CREATININE 4.06 mg/dL (0.55-1.02); POTASSIUM 4.7 mmol/L (3.5-5.1); TOTAL PROTEIN 7.3 gm/dL (6.4-8.2)
[2016-12-28 05:55] LABS: BASO % 0.4 % (0.0-1.0); EOS # 0.3 10*3/uL (0.0-0.4); EOS % 3.1 % (1.0-4.0); HEMATOCRIT 33.7 % (37.0-47.0); HEMOGLOBIN 10.1 g/dl (12.0-16.0); LYMPH % 11.8 % (27.0-41.0); MEAN CELL VOLUME 84.5 fl (81.0-99.0); MEAN CORPUSCULAR HGB 25.3 pg (27.0-31.0); MEAN PLATELET VOLUME 12.5 fl (9.6-12.3); MONO # 0.6 10*3/uL (0.1-1.0); MONO % 7.5 % (3.0-9.0); NEUT # 6.3 10*3/uL (2.3-7.9); NEUT % 76.8 % (47.0-73.0); PLATELET COUNT AUTOMATED 117 10*3/uL (130-400); RED BLOOD COUNT 3.99 10*6/uL (4.10-5.10); RED CELL DISTRI WIDTH 19.9 % (0-14.5); WHITE BLOOD COUNT 8.2 10*3/uL (4.8-10.8)
[2016-12-28 06:05] LABS: INTERNATIONAL NORM RATIO 2.6 (2.0-3.5)
[2016-12-28 06:09] LABS: HEPATITIS B SURFACE AG Negative (Negative); HEPATITIS C VIRUS ANTIBODY 0.2 s/co (0.0-0.9)
[2016-12-28 08:00] VITALS: BP 101/74
--- NOTE | 2016-12-28 10:50 | NUR ---
PT MEDICATED WITH PRN NORCO FOR C/O BACK AND LEG PAIN. WILL MONITOR.
--- NOTE | 2016-12-28 13:00 | NUR ---
PRN NORCO SOMEWHAT EFFECTIVE PER PATIENT. PT REFUSES ANY FURTHER PAIN MEDS A THIS TIME.
--- NOTE | 2016-12-28 14:32 | NUR ---
PT MEDICATED WITH PRN MORPHINE AT THIS TIME FOR C/O BACK AND LEG PAIN. WILL CONTINUE TO MONITOR.
[2016-12-28 16:00] VITALS: BP 106/82
[2016-12-28 20:00] VITALS: BP 123/66
--- NOTE | 2016-12-28 20:00 | NUR ---
MEDICATED WITH MORPHINE PER PRN ORDER FOR S/S OF PAIN AND DISTRESS.
[2016-12-29] VITALS: BP 110/47
--- NOTE | 2016-12-29 | NUR ---
PATIENT RESTING QUIETLY IN BED. BIPAP ON, RESPIRATIIONS EASY/REG, NO SXS OF DISTRESS. NO VOICED COMPLAINTS AT THIS TIME. WILL MONITOR.
[2016-12-29 06:01] LABS: BASO % 0.3 % (0.0-1.0); EOS # 0.3 10*3/uL (0.0-0.4); EOS % 3.6 % (1.0-4.0); HEMATOCRIT 34.4 % (37.0-47.0); HEMOGLOBIN 10.5 g/dl (12.0-16.0); LYMPH # 0.7 10*3/uL (1.3-4.4); LYMPH % 9.4 % (27.0-41.0); MEAN CELL VOLUME 84.7 fl (81.0-99.0); MEAN CORPUSCULAR HGB 25.9 pg (27.0-31.0); MEAN CORPUSCULAR HGB CONC 30.5 g/dl (33.0-37.0); MEAN PLATELET VOLUME 12.3 fl (9.6-12.3); MONO # 0.6 10*3/uL (0.1-1.0); MONO % 7.8 % (3.0-9.0); NEUT # 5.8 10*3/uL (2.3-7.9); NEUT % 78.5 % (47.0-73.0); NUCLEATED RED BLOOD CELL 0.4 % (0.0-0.0); PLATELET COUNT AUTOMATED 97 10*3/uL (130-400); RED BLOOD COUNT 4.06 10*6/uL (4.10-5.10); RED CELL DISTRI WIDTH 19.7 % (0-14.5); WHITE BLOOD COUNT 7.4 10*3/uL (4.8-10.8)
[2016-12-29 06:25] LABS: ALBUMIN 3.5 gm/dl (3.1-4.5); CREATININE 4.51 mg/dL (0.55-1.02); MAGNESIUM 2.5 mg/dL (1.5-2.1); PHOSPHOROUS 6.2 mg/dL (2.5-4.9); POTASSIUM 4.3 mmol/L (3.5-5.1); TOTAL PROTEIN 7.4 gm/dL (6.4-8.2)
[2016-12-29 06:28] LABS: INTERNATIONAL NORM RATIO 2.5 (2.0-3.5)
--- NOTE | 2016-12-29 06:40 | NUR ---
SLEPT T/O SHIFT WITH NO SXS OF DISTRESS. BUMEX GTT MAINTAINED PER ORDER. BIPAP ON. RESPIRATIONS EASY/REG. CALL LIGHT IN REACH.
[2016-12-29 08:00] VITALS: BP 97/62
--- NOTE | 2016-12-29 11:30 | NUR ---
PT GIVEN MORHPINE IV FOR PAIN. MEDICINE EFFECTIVE WITHIN MINUTES OF ADMINISTRATION. WILL CONINUE TO MONITOR PT.
[2016-12-29 12:00] VITALS: BP 98/79
--- NOTE | 2016-12-29 15:30 | NUR ---
PT GIVEN IV MORHPINE FOR PAIN. EFFECTIVE WITHIN MINUTES OF ADMINISTRATION. PT WAS TURNED OVER ON SIDE. PRESSURE SPOTS WERE CHECKED. ALL ASYMPTOMATIC
[2016-12-29 16:00] VITALS: BP 105/67
--- NOTE | 2016-12-29 16:32 | NUR ---
CALLED DR. LEY ON OUTDATED IV ON PT IN RA. WAS NOTIFIED THAT PT IS A DIFFICULT STICK, AND THE SITE IS ASYMPTOMATIC AT THIS TIME. HE DID NOT OBJECT TO KEEPING THE IV IN AT THIS TIME. WILL CONTINUE TO MONITOR PT.
--- NOTE | 2016-12-29 17:02 | NUR ---
CALLED PHARMACIST CHET FOR HIS EXPERTICE ON MEDICINE. QUESTION AT HAND WAS RATHER NBA COULD RUN WITH ALICIA. HE CONFIRMED IT WAS COMPATIABLE. WILL CONTINUE TO MONITOR PT.
--- NOTE | 2016-12-29 18:18 | NUR ---
PT'S TROUGH LEVEL CRITICAL HIGH FOR NEXT VANC DOSE. CALLED PHARMACY AND TALKED TO CHET CONFIRMING THE TROUGH CRITICAL TROUGH LEVE. ORDER IS TO CANCEL NEXT DOSE UNTIL NEW ORDER IS GIVEN. WILL CONTINUE TO MONITOR PT.
[2016-12-29 20:00] VITALS: BP 93/65
--- NOTE | 2016-12-29 20:52 | NUR ---
PER PT REQUEST PT TAKEN OFF BIPAP...PT PLACED ON 6LNC AT THIS TIME
--- NOTE | 2016-12-29 21:30 | NUR ---
ORDERED 2200 BP MED HELD FOR BP 93/65, REFER TO MAR.
--- NOTE | 2016-12-29 21:58 | NUR ---
pt short of breath on 6lnc spo2 in 80s pt placed back on bipap 12/8 40% o2..spo2 still in 80s increased o2 to 50% spo2 in 80s increased o2 to 100% pt suctioned for moderate amount of secretions spo2 up to 94% post sunctioning fio2 kept at 100% at this time RN notified and was in room with pt
--- NOTE | 2016-12-29 21:58 | NUR ---
RESP THERAPY CALLED TO PLACE PT BACK ON BIPAP, PT STATES SHE IS SOB AND SATURATION IS IN 80'S ON 6 LITERS OF O2 NC. RESP SUCTIONED PATIENT AND PLACED BIPAP ON. PT CURRENTLY 94% ON BIPAP 02/28 100%.
--- NOTE | 2016-12-29 22:00 | NUR ---
PRN MORPHINE GIVEN PER FAMILY REQUEST.
--- NOTE | 2016-12-29 22:54 | NUR ---
PRN MORPHINE APPEARS EFFECTIVE, PT IS RESTING COMFORTABLY AND IS BREATHING EASILY. SATURATION IS 98% ON BIPAP. HR 80 BPM ON CM.
[2016-12-30] VITALS (13 sets, daily range): BP systolic 40–92; BP diastolic 0–53
--- NOTE | 2016-12-30 01:52 | NUR ---
24 HR chart check completed.
--- NOTE | 2016-12-30 02:55 | NUR ---
RAPID RESPONSE CALLED AFTER PATIENT FOUND DESATING BY RESP THERAPIST.
--- NOTE | 2016-12-30 02:57 | NUR ---
CODE BLUE CALLED.
--- NOTE | 2016-12-30 02:58 | NUR ---
CPR COMPRESSIONS INITIATED, CODE TOYS AND GAMES HAND FINISHER BY DR KOHLER, IN ROOM. NURSING ONSITE HEALTH COACH SALLY EVRIN PRESENT AT CODE. PATIENT INTUBATED BY DR KOHLER.
--- NOTE | 2016-12-30 03:18 | NUR ---
PATIENTS' SON LALO RAINES CALLED TO REPORT CHANGE IN STATUS AND TO REQUEST HE COME TO THE HOSPITAL ROZ.
--- NOTE | 2016-12-30 03:20 | NUR ---
DR NICHOLAS CALLED TO REPORT SITUATION. PER DR KOHLER, DR NICHOLAS REQUESTED TO COME INTO HOSPITAL TO OFFER RELIEF.
--- NOTE | 2016-12-30 03:21 | NUR ---
AROUND 0255 RT CAME INTO ROOM..SPO2 WAS 83% ON BIPAP...INCREASED O2 TO 50% PT WENT UNRESPONSIVE CODE BLUE CALLED..PT BAGGED WITH 100% O2 BY RESPIRATORY DR. KOHLER INTUBATED PT WITH 7.0 ETT SECURED AT 20CM PT TAKEN TO CCU AND PLACED ON 840 VENT AC 12 TV 500 O2 100% PER DR. KOHLER
--- NOTE | 2016-12-30 03:21 | NUR ---
PER DR EDEN ORDER PATIENT TRANSFERRED TO ICU.
--- NOTE | 2016-12-30 03:44 | NUR ---
SA TX NOT GIVEN...CODE BLUE WAS CALLED ON PT..PT IN CCU RN WORKING WITH PT AT THIS TIME
[2016-12-30 03:45] LABS: ABG HCO3 18.2 mmol/l (22-26); HEMOGLOBIN 11.5 g/dl (12.0-16.0); MEAN CORPUSCULAR HGB 25.2 pg (27.0-31.0); MEAN CORPUSCULAR HGB CONC 27.6 g/dl (33.0-37.0); MEAN PLATELET VOLUME 12.9 fl (9.6-12.3); NUCLEATED RED BLOOD CELL 0.2 10*3/uL (0.0-0.0); NUCLEATED RED BLOOD CELL 1.6 % (0.0-0.0); PLATELET COUNT AUTOMATED 74 10*3/uL (130-400); RED BLOOD COUNT 4.56 10*6/uL (4.10-5.10); RED CELL DISTRI WIDTH 20.5 % (0-14.5); WHITE BLOOD COUNT 12.7 10*3/uL (4.8-10.8)
--- NOTE | 2016-12-30 03:47 | NUR ---
AFTER INTUBATION, GOOD COLOR CHANGE WITH CO2 DETECTOR BBS CONFIRMED BY SAVANNA SINGH
[2016-12-30 03:53] LABS: ARTERIAL BLOOD GAS PCO2 78.3 mmHg (35-45); ARTERIAL BLOOD GAS PH 6.994 (7.35-7.45)
[2016-12-30 03:54] LABS: ABG BASE EXCESS -14.6 mmol/L (-2.0-2.0); ARTERIAL BLOOD GAS PO2 27.7 mmHg (80-90); HEMATOCRIT 41.7 % (37.0-47.0); INTERNATIONAL NORM RATIO 3.7 (2.0-3.5); MEAN CELL VOLUME 91.4 fl (81.0-99.0)
[2016-12-30 03:59] LABS: CREATININE 5.27 mg/dL (0.55-1.02)
[2016-12-30 04:05] LABS: BURR CELLS MANY; PLATELET SUFFICIENCY LOW (NORMAL); POLYCHROMASIA SLIGHT; TOTAL CELLS COUNTED 100 #CELLS
--- NOTE | 2016-12-30 04:20 | NUR ---
PATIENT FAMILY IS ON THE FLOOR AND THEY HAVE COLLECTED ALL OF THE PATIENTS' BELONGINGS FROM HER INPATIENT ROOM.
--- NOTE | 2016-12-30 04:33 | NUR ---
PT WAS BROUGHT TO THE ICCU S/P CODE BLUE. DOPAMINE HAS BEEN TITRATED UP TO 25MCG/KG/MIN AND BP 70'S SYSTOLIC. MONITOR ATRIAL FIB VR 90-110. DR WITT HAS BEEN NOTIFIED OF PT'S CHANGE OF CONDITION. DR NICHOLAS IS ON HIS WAY IN. SON HERE AND TOLD MYSELF, YAMILETH ERVIN, AND DR KOHLER THAT PT HAS ADVANCED DIRECTIVE SAYING NO EXTRAORDINARY MEASURES IF HER CONDITION IS "TERMINAL" AND HE DOESN'T WANT HER TO "SUFFER ANYMORE". DR KOHLER SIGNED DNR-CCA.
--- NOTE | 2016-12-30 04:38 | NUR ---
REPORT GIVEN TO ICU NURSE ANN MARIE TINSLEY.
--- NOTE | 2016-12-30 04:48 | NUR ---
DR WITT NOTIFIED OF ALL LABS POST CODE AND ABOUT SONS WISHES. ORDERS RECEIVED. AMP CALCIUM GLUCONATE GIVEN.
--- NOTE | 2016-12-30 05:01 | NUR ---
DR SONG UPDATED ON EVENTS. REVIEWED LABS POST CODE WITH HIM AND HER CURRENT PRESSORS. DR NICHOLAS HAS ARRIVED AND TALKED WITH PT'S SON.
--- NOTE | 2016-12-30 05:05 | NUR ---
APPROACHED THE BED TO GIVE THE SODIUM BICARBONATE AND SECOND DOSE OF CALCIUM GLUCONATE THAT DR SONG HAD ORDERED AND THE SON, NICK, REFUSED THEM TO BE GIVEN.
--- NOTE | 2016-12-30 05:40 | NUR ---
SALESPERSON [employer] VS. GIUSEPPE MAY AT BEDSIDE AND AGREES TO HOSPICE. NOT FAMILIAR WITH HOSPICE COMPANIES IN THIS AREA. STATES TO CALL [employer] [facility].
--- NOTE | 2016-12-30 06:00 | NUR ---
[facility] NOTIFIED. ANSWERING SERVICE WILL HAVE SOMEONE CALL ME BACK.
--- NOTE | 2016-12-30 06:22 | NUR ---
SON DID CONSENT FOR ANOTHER BAG OF DOPAMINE TO BE HUNG HE HAS ANOTHER BROTHER ON THE WAY.
--- NOTE | 2016-12-30 06:28 | NUR ---
REC'D CALL FROM JOHN AT [facility]. STATES SOMEONE WILL BE HERE SOON THEY CAN. PAPERWORK FAXED TO [facility] OFFICE.
--- NOTE | 2016-12-30 06:46 | NUR ---
PER NURSE REQUEST, HOSPICE NOTIFIED NOT TO COME DOWN PT GOING TO SOON.
--- NOTE | 2016-12-30 07:11 | NUR ---
AT 0649 PT ASYSTOLIC, NO SPONTANEOUS ATTEMPTS TO BREATHE. FAMILY ALL AT THE BEDSIDE. DR NICHOLAS HERE AND PRONOUNCED PATIENT.
--- NOTE | 2016-12-30 07:46 | NUR ---
[facility] CALLED ABOUT PT'S DEMISE. HOLD PLACED ON RELEASE OF BODY UNTIL THEY RECEIVE ALL DOCUMENTATION THAT THEY ARE FAXING A CHECK OFF LIST DETAILING. FAMILY AT THE BEDSIDE NOW.
--- NOTE | 2016-12-30 07:53 | NUR ---
PHYSICAL THERAPY PAtient to [facility], will require new PT orders when medically appropriate. Thank you. Roslyn Arora,PT PHYSICAL THERAPY CO-SIGN I approve of the Phyical Therapy notes written above. ROSLYN ARORA PT
--- NOTE | 2016-12-30 08:16 | NUR ---
DR HURLEY MADE AWARE THAT PT THIS AM.
--- NOTE | 2016-12-30 08:41 | NUR ---
EYES PREPPED PER PROTOCOL. BODY TAKEN TO [facility] [place] VIA [facility]. ONE CALL NOTIFIED.
== END 2016-12-30 06:49 | disposition expired | DRG 208 ==
LOC: ED 11:50 → 4E 13:36 → EDHOLD 13:36 → 4E 13:37 → ICCU 12-30 03:39
PROVIDERS: Emergency Medicine; Emergency Medicine Emergency Medical Services; Family Medicine; Internal Medicine; Internal Medicine Hospice and Palliative Medicine; Internal Medicine Nephrology; Student in an Organized Health Care Education/Training Program; ADMIT Internal Medicine
DX: J96.01 Acute respiratory failure with hypoxia (principal); N17.0 Acute kidney failure with tubular necrosis; E43 Unspecified severe protein-calorie malnutrition; I50.33 Acute on chronic diastolic (congestive) heart failure; J18.9 Pneumonia, unspecified organism; G93.40 Encephalopathy, unspecified; J44.0 Chronic obstructive pulmonary disease with (acute) lower respiratory infection; R18.8 Other ascites; R65.10 Systemic inflammatory response syndrome (SIRS) of non-infectious origin without acute organ dysfunction; J98.2 Interstitial emphysema; L97.919 Non-pressure chronic ulcer of unspecified part of right lower leg with unspecified severity; J98.11 Atelectasis; Z68.30 Body mass index [BMI] 30.0-30.9, adult; K76.0 Fatty (change of) liver, not elsewhere classified; C50.919 Malignant neoplasm of unspecified site of unspecified female breast; B35.1 Tinea unguium; Z66 Do not resuscitate; I48.2 Chronic atrial fibrillation; D64.9 Anemia, unspecified; N18.3 Chronic kidney disease, stage 3 (moderate); R73.9 Hyperglycemia, unspecified; I45.10 Unspecified right bundle-branch block; I73.9 Peripheral vascular disease, unspecified; M79.89 Other specified soft tissue disorders; E03.9 Hypothyroidism, unspecified; G89.29 Other chronic pain; I46.9 Cardiac arrest, cause unspecified; H91.3 Deaf nonspeaking, not elsewhere classified; I87.2 Venous insufficiency (chronic) (peripheral); E66.9 Obesity, unspecified; E55.9 Vitamin D deficiency, unspecified; E53.8 Deficiency of other specified B group vitamins; E04.1 Nontoxic single thyroid nodule; Z51.5 Encounter for palliative care; Z79.82 Long term (current) use of aspirin; Z79.01 Long term (current) use of anticoagulants; Z95.4 Presence of other heart-valve replacement; Z90.12 Acquired absence of left breast and nipple; Z83.3 Family history of diabetes mellitus; Z82.49 Family history of ischemic heart disease and other diseases of the circulatory system; Z80.42 Family history of malignant neoplasm of prostate; Z80.0 Family history of malignant neoplasm of digestive organs